=== PATIENT | female | born 1985 | race Caucasian/White ===

== ENCOUNTER 2018-12-02 11:11 | Emergency (ER) | payer MEDICAID, OTHER, SELFPAY ==
[~2018-12-02] VITALS: Ht 165.1 cm; Wt 115.3 kg
[~2018-12-02 11:11] MED LIST: /AUGM875TA OR; ACET65TA OR; ALLE25CA OR; CELE1CAP4 OR; DOCU10CA PO; GLYB125TA PO; IBUP80TA PO; MAPA500T2 PO; PROT1TAB2 OR; VICO5TAB OR; VITAPRTA PO; ZOLO25TA OR
[2018-12-02] MEDS ORDERED: OFLO3OPSO OD (11:18)
[2018-12-02] MEDS ORDERED: ESCI20TA (11:18)
[2018-12-02] MEDS ORDERED: OFLO3OPSO OP (11:18)
[2018-12-02] MEDS: FLUORESCEIN OPHTH 1 MG STRIP OD ONE (12:03)
[2018-12-02] MEDS: TETRACAINE 0.5% OPHTH SOLN 4ML OD STA (12:03)
[2018-12-02 12:56] VITALS: BP 142/71
== END 2018-12-02 13:04 | disposition home or self-care (01) ==
LOC: M ED 11:11
DX: T15.01XA Foreign body in cornea, right eye, initial encounter (principal); X58.XXXA Exposure to other specified factors, initial encounter; Y92.098 Other place in other non-institutional residence as the place of occurrence of the external cause; F41.9 Anxiety disorder, unspecified; F32.9 Major depressive disorder, single episode, unspecified; Z88.1 Allergy status to other antibiotic agents; Z79.899 Other long term (current) drug therapy

== ENCOUNTER → 2019-01-15 | Outpatient (CLI) | payer OTHER ==
[~2019-01-15] MED LIST changes: +ESCI20TA; +OFLO3OPSO OD; +OFLO3OPSO OP
[2019-01-15 18:18] LABS: GLUCOSE CHALLENGE TEST 1 HOUR 141 MG/DL (LESS THAN 140)
[2019-01-15 18:38] LABS: BASO % 0.4 % (0.0-1.0); EOS # 0.1 10^3/uL (0.0-0.5); EOS % 0.7 % (0.0-3.0); HEMATOCRIT 38.2 % (36.0-47.0); HEMOGLOBIN 12.7 g/dl (12.0-15.5); LYMPH # 2.1 10^3/uL (1.5-5.0); LYMPH % 25.7 % (24.0-44.0); MEAN CORPUSCULAR HEMOGLOBIN 30.8 pg (27.0-33.0); MEAN CORPUSCULAR HGB CONC 33.2 g/dl (32.0-36.5); MEAN CORPUSCULAR VOLUME 92.7 fl (80.0-96.0); MONO # 0.5 10^3/uL (0.0-0.8); MONO % 6.6 % (0.0-5.0); NEUTROPHILS # 5.3 10^3/uL (1.5-8.5); NEUTROPHILS % 65.9 % (36.0-66.0); PLATELET COUNT, AUTOMATED 223 10^3/uL (150-450); RED BLOOD COUNT 4.12 10^6/uL (4.00-5.40); WHITE BLOOD COUNT 8.1 10^3/uL (4.0-10.0)
[2019-01-15 18:45] LABS: RUBELLA IgG QUALITATIVE IMMUNE (IMMUNE)
[2019-01-15 19:14] LABS: HIV 1&2 SCREEN CENTAUR NEGATIVE (NEGATIVE)
[2019-01-15 20:44] LABS: CHLAMYDIA DNA AMPLIFICATION NEGATIVE (NEGATIVE); GC DNA AMPLIFICATION NEGATIVE (NEGATIVE)
[2019-01-17 09:32] LABS: HEPATITIS C VIRUS ABY INDEX 0.1 INDEX (<0.8)
== END ==
LOC: M SMT 13:17
PROVIDERS: ATTEND Advanced Practice Midwife
DX: Z34.81 Encounter for supervision of other normal pregnancy, first trimester (principal)

== ENCOUNTER → 2019-01-25 | Outpatient (CLI) | payer OTHER ==
[2019-01-25 10:23] LABS: BASO % 0.4 % (0.0-1.0); EOS % 0.6 % (0.0-3.0); HEMOGLOBIN 12.2 g/dl (12.0-15.5); LYMPH # 1.7 10^3/uL (1.5-5.0); LYMPH % 24.2 % (24.0-44.0); MEAN CORPUSCULAR VOLUME 91.1 fl (80.0-96.0); MONO # 0.5 10^3/uL (0.0-0.8); MONO % 7.2 % (0.0-5.0); NEUTROPHILS # 4.6 10^3/uL (1.5-8.5); PLATELET COUNT, AUTOMATED 210 10^3/uL (150-450); RED BLOOD COUNT 4.06 10^6/uL (4.00-5.40); WHITE BLOOD COUNT 6.8 10^3/uL (4.0-10.0)
[2019-01-25 10:51] LABS: ALT/SGPT 21 U/L (12-78); BILIRUBIN,TOTAL 0.3 MG/DL (0.2-1.0); BLOOD UREA NITROGEN 7 MG/DL (7-18); CALCIUM LEVEL 8.5 MG/DL (8.5-10.1); CARBON DIOXIDE LEVEL 26 MEQ/L (21-32); CHLORIDE LEVEL 105 MEQ/L (98-107); CREATININE FOR GFR 0.58 MG/DL (0.55-1.30); FERRITIN 23 NG/ML (8-252); FREE T4 0.88 NG/DL (0.76-1.46); GLOMERULAR FILTRATION RATE > 60.0 (>60); GLUCOSE, FASTING 99 MG/DL (70-100); IRON (FE) 74 UG/DL (50-170); POTASSIUM SERUM 3.9 MEQ/L (3.5-5.1); SODIUM LEVEL 139 MEQ/L (136-145); TOTAL PROTEIN 6.4 GM/DL (6.4-8.2)
[2019-01-25 11:40] LABS: TOTAL 25(OH) VITAMIN D 23.6 NG/ML (30.0-100.0); TOTAL T3 168.2 NG/DL (60.0-181.0)
== END ==
LOC: M SMT 08:21
PROVIDERS: ATTEND Family Medicine
DX: Z51.81 Encounter for therapeutic drug level monitoring (principal); Z79.899 Other long term (current) drug therapy; D50.9 Iron deficiency anemia, unspecified; E04.9 Nontoxic goiter, unspecified; E55.9 Vitamin D deficiency, unspecified; R51 Headache

== ENCOUNTER → 2019-01-26 | Outpatient (CLI) | payer OTHER | LOC: M LAB 07:27 | PROVIDERS: ATTEND Advanced Practice Midwife | DX: R73.02 Impaired glucose tolerance (oral) (principal) ==

== ENCOUNTER → 2019-02-03 | Outpatient (CLI) | payer OTHER | LOC: M LAB 10:23 | PROVIDERS: ATTEND Advanced Practice Midwife | DX: Z13.79 Encounter for other screening for genetic and chromosomal anomalies (principal) ==

== ENCOUNTER → 2019-02-13 | Outpatient (REF) | payer OTHER | LOC: M LAB REF 09:41 | PROVIDERS: ATTEND Advanced Practice Midwife | DX: Z34.82 Encounter for supervision of other normal pregnancy, second trimester (principal); Z3A.00 Weeks of gestation of pregnancy not specified ==

== ENCOUNTER 2019-02-26 20:01 | Emergency (ER) | payer OTHER ==
[~2019-02-26] VITALS: Ht 165.1 cm; Wt 117.7 kg
[2019-02-26] MEDS ORDERED: [UNRECOGNIZED DRUG - CODE] PO (20:09)
[2019-02-26] MEDS ORDERED: CHOL100029 PO (20:09)
[2019-02-26] MEDS ORDERED: AMOX875T2 PO (21:35)
[2019-02-26] MEDS ORDERED: methylPREDNISolone INJ 125 MG/2 ML VIAL (J2930) IV ONE (21:45)
[2019-02-26] MEDS ORDERED: ALBUTEROL SULFATE 2.5 MG/0.5 ML INH NEB SOLN NEB ONE ×2 (21:45→23:15)
[2019-02-26] MEDS ORDERED: IPRATROPIUM 0.5MG/ALBUTEROL 2.5MG INH SOL UD 3ML (DUONEB)(J7620) NEB ONE (21:45)
[2019-02-26 22:19] LABS: BASO % 0.4 % (0.0-1.0); EOS # 0.1 10^3/uL (0.0-0.5); EOS % 1.1 % (0.0-3.0); HEMATOCRIT 36.1 % (36.0-47.0); HEMOGLOBIN 11.9 g/dl (12.0-15.5); LYMPH # 1.7 10^3/uL (1.5-5.0); LYMPH % 18.3 % (24.0-44.0); MEAN CORPUSCULAR HEMOGLOBIN 29.8 pg (27.0-33.0); MEAN CORPUSCULAR VOLUME 90.3 fl (80.0-96.0); MONO # 0.7 10^3/uL (0.0-0.8); MONO % 7.2 % (0.0-5.0); NEUTROPHILS # 6.8 10^3/uL (1.5-8.5); NEUTROPHILS % 71.7 % (36.0-66.0); PLATELET COUNT, AUTOMATED 201 10^3/uL (150-450); WHITE BLOOD COUNT 9.5 10^3/uL (4.0-10.0)
[2019-02-26 22:39] LABS: BLOOD UREA NITROGEN 5 MG/DL (7-18); CALCIUM LEVEL 8.7 MG/DL (8.5-10.1); CARBON DIOXIDE LEVEL 24 MEQ/L (21-32); CHLORIDE LEVEL 105 MEQ/L (98-107); CREATININE FOR GFR 0.54 MG/DL (0.55-1.30); GLOMERULAR FILTRATION RATE > 60.0 (>60); GLUCOSE, FASTING 85 MG/DL (70-100); POTASSIUM SERUM 3.8 MEQ/L (3.5-5.1); SODIUM LEVEL 136 MEQ/L (136-145)
[2019-02-26] MEDS ORDERED: ALBUTEROL 90 MCG/ACT 8GM HFA INHALER INH ONE (23:15)
[2019-02-26] MEDS ORDERED: AMOX500C PO (23:30)
[2019-02-26] MEDS ORDERED: VENTAER INH (23:30)
[2019-02-26 23:44] VITALS: BP 139/76
--- NOTE | 2019-02-27 07:41 | ECGEPIP ---
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
== END 2019-02-26 23:45 | disposition home or self-care (01) ==
LOC: M ED 20:01
DX: O99.519 Diseases of the respiratory system complicating pregnancy, unspecified trimester (principal); J20.9 Acute bronchitis, unspecified; Z79.84 Long term (current) use of oral hypoglycemic drugs; Z90.49 Acquired absence of other specified parts of digestive tract; Z88.1 Allergy status to other antibiotic agents; O24.410 Gestational diabetes mellitus in pregnancy, diet controlled; Z3A.00 Weeks of gestation of pregnancy not specified; O99.340 Other mental disorders complicating pregnancy, unspecified trimester; F41.9 Anxiety disorder, unspecified; O99.619 Diseases of the digestive system complicating pregnancy, unspecified trimester; K21.9 Gastro-esophageal reflux disease without esophagitis
CPT/HCPCS: 36415; 80048; 83605; 85025; 87040; 93005; 94640; 96374; 99284; J2930

== ENCOUNTER → 2019-03-07 | Outpatient (CLI) | payer OTHER ==
[~2019-03-07] MED LIST changes: +AMOX500C PO; +AMOX875T2 PO; +CHOL100029 PO; +VENTAER INH; +[UNRECOGNIZED DRUG - CODE] PO
--- NOTE | 2019-03-07 07:59 | REP ---
Clinical: Anatomical evaluation. Comparison: None . Findings: Examination demonstrates a single live intrauterine in breech presentation. motion is identified by technologist. Placenta is noted anterior and grade zero without evidence for placenta previa or abruption. Amniotic fluid volume is normal. Cervix measures 4.4 cm in length and appears closed. No evidence for nuchal cord. Gestational age by LMP 17 weeks 6 days with BHAVANI 08/09/2019 . Gestational age by current measurements 18 weeks 4 days with BHAVANI 08/04/2019 . FHR equals 163 beats per minute. BPD 4.5 cm 19 weeks 4 days HC 16.0 cm 18 weeks 6 days AC 12.7 cm 18 weeks 2 days FL 2.6 cm 17 weeks 6 days HL 2.7 cm 18 weeks 4 days HC/AC ratio 1.26 Estimated weight 230 grams ( 60th percentile). Anatomical assessment demonstrates normal structures including cranium, cavum, lungs, four-chamber heart, diaphragm, stomach, cord insertion/three-vessel cord, kidneys/bladder, and extremities. Limited evaluation of the cord plexus, posterior fossa, facial features, cardiac ventricular outflow tracts and spine due to positioning. Impression: 1. Single live intrauterine in breech presentation demonstrating appropriate interval growth. 2. Anatomical limitations as noted above may warrant reevaluation and follow-up. Electronically Signed by Jean Claude Hicks MD 03/07/2019 07:50 A
== END ==
LOC: M RAD 07:12
PROVIDERS: ATTEND Advanced Practice Midwife
DX: Z34.82 Encounter for supervision of other normal pregnancy, second trimester (principal); Z3A.17 17 weeks gestation of pregnancy

== ENCOUNTER → 2019-03-19 | Outpatient (REF) | payer OTHER | LOC: M PLALAB 08:46 | PROVIDERS: ATTEND Advanced Practice Midwife | DX: Z3A.19 19 weeks gestation of pregnancy (principal); Z53.9 Procedure and treatment not carried out, unspecified reason ==

== ENCOUNTER → 2019-04-02 | Outpatient (CLI) | payer OTHER ==
--- NOTE | 2019-04-02 13:53 | REP ---
OB ULTRASOUND: Real-time sonographic evaluation of the gravid uterus performed. There is a single living intrauterine gestation. The estimated gestational age is 21 weeks 4 days with EDC 08/09/2019. Today's measurements indicate appropriate growth. Biometry and Growth: BPD 58 mm = 23 weeks 6 days, over 95th percentile HC 209 mm = 23 weeks 0 days, 91st percentile AC 179 mm = 22 weeks 5 days, 75th percentile FL 38 mm = 22 weeks 0 days, 61st percentile HC/AC ratio 1.7 within normal range. Estimated weight 515 grams 79th percentile. SEEN/GROSSLY UNREMARKABLE Lateral ventricles Yes Posterior fossa Yes Upper lip Yes LVOT Yes RVOT Yes Spine Yes Other anatomical structures were visualized on the prior study of 03/07/2019. Cervical length: Cervix is closed and measures 4.3 cm in length. heart rate: 149 beats per minute. position: Vertex. Placenta: Anterior and grade 0 with no previa or abruption. Amniotic fluid: Within normal limits. Electronically Signed by Subhash Gutiérrez MD 04/02/2019 02:51 P
== END ==
LOC: M RAD 12:07
PROVIDERS: ATTEND Advanced Practice Midwife
DX: Z34.82 Encounter for supervision of other normal pregnancy, second trimester (principal); Z3A.21 21 weeks gestation of pregnancy

== ENCOUNTER → 2019-04-09 | Outpatient (CLI) | payer OTHER | LOC: M LAB 07:43 | PROVIDERS: ATTEND Advanced Practice Midwife | DX: Z34.92 Encounter for supervision of normal pregnancy, unspecified, second trimester (principal); Z3A.19 19 weeks gestation of pregnancy ==

== ENCOUNTER → 2019-05-24 | Outpatient (CLI) | payer OTHER ==
--- NOTE | 2019-05-25 08:18 | REP ---
Focused left breast sonography: History: Left breast mastitis, possible abscess. Sonographic findings: Inferolateral quadrant left breast sonography is performed 3 o'clock to 6 o'clock. There is no evidence of focal mass, abscess, or cyst. No architectural distortion is seen. Impression: BIRADS category 1 negative findings. Clinical followup is advised.
== END ==
LOC: M WHC 14:47
PROVIDERS: ATTEND Specialist
DX: N61.0 Mastitis without abscess (principal)

== ENCOUNTER → 2019-05-31 | Outpatient (CLI) | payer OTHER ==
[2019-05-31 07:30] LABS: HEMATOCRIT 31.2 % (36.0-47.0); HEMOGLOBIN 10.2 g/dl (12.0-15.5); MEAN CORPUSCULAR HEMOGLOBIN 30.4 pg (27.0-33.0); MEAN CORPUSCULAR HGB CONC 32.7 g/dl (32.0-36.5); MEAN CORPUSCULAR VOLUME 92.9 fl (80.0-96.0); PLATELET COUNT, AUTOMATED 197 10^3/uL (150-450); RED BLOOD COUNT 3.36 10^6/uL (4.00-5.40); WHITE BLOOD COUNT 6.3 10^3/uL (4.0-10.0)
== END ==
LOC: M LAB 06:57
PROVIDERS: ATTEND Advanced Practice Midwife
DX: Z34.93 Encounter for supervision of normal pregnancy, unspecified, third trimester (principal); Z3A.00 Weeks of gestation of pregnancy not specified

== ENCOUNTER → 2019-07-03 | Outpatient (REF) | payer OTHER | LOC: M SFHCWAGY 13:05 | PROVIDERS: ATTEND Advanced Practice Midwife | DX: Z36.85 Encounter for antenatal screening for Streptococcus B (principal) ==

== ENCOUNTER 2019-07-29 19:06 | Outpatient (CLI) | payer OTHER ==
[~2019-07-29] VITALS: Ht 165.1 cm; Wt 131.4 kg
[2019-07-29 19:38] VITALS: BP 139/93
[2019-07-29 19:53] VITALS: BP 142/94
[2019-07-29 20:08] VITALS: BP 138/88
[2019-07-29] MEDS ORDERED: FIORICET TAB PO ONE (20:15)
[2019-07-29 20:47] LABS: ALT/SGPT 12 U/L (12-78); BILIRUBIN,TOTAL 0.6 MG/DL (0.2-1.0); CREATININE FOR GFR 0.62 MG/DL (0.55-1.30); GLOMERULAR FILTRATION RATE > 60.0 (>60); LDH LACTATE DEHYDROGENASE 211 U/L (84-246); URIC ACID 5.1 MG/DL (2.6-6.0)
[2019-07-29 20:48] LABS: APPEARANCE, URINE CLOUDY (CLEAR); BACTERIA, URINE AUTO 1+ (NEGATIVE); BILIRUBIN, URINE AUTO NEGATIVE (NEGATIVE); BLOOD, URINE BLOOD NEGATIVE (NEGATIVE); COLOR, URINE YELLOW (YELLOW); GLUCOSE, URINE (UA) AUTO NEGATIVE (NEGATIVE); KETONE, URINE AUTO NEGATIVE (NEGATIVE); LEUKOCYTE ESTERASE, URINE AUTO 1+ (NEGATIVE); MUCUS, URINE SMALL (NEGATIVE); NITRITE, URINE AUTO NEGATIVE (NEGATIVE); PROTEIN, URINE AUTO NEGATIVE (NEGATIVE); RBC, URINE AUTO 4 /HPF (0-3); SPECIFIC GRAVITY URINE AUTO 1.014 (1.002-1.035); SQUAMOUS EPITHELIAL CELL UR AU 39 /HPF (0-6); TRANSITIONAL EPITHELIAL AUTO 2 /HPF; UROBILINOGEN, URINE AUTO 0.2 mg/dL (0.0-2.0); WBC, URINE AUTO 5 /HPF (0-3)
[2019-07-29 20:56] LABS: TOTAL PROTEIN,RANDOM URINE 23.5 MG/DL (0.0-12.0)
[2019-07-29 21:24] LABS: HEMOGLOBIN 9.8 g/dl (12.0-15.5); MEAN CORPUSCULAR HEMOGLOBIN 28.2 pg (27.0-33.0); MEAN CORPUSCULAR HGB CONC 31.6 g/dl (32.0-36.5); MEAN CORPUSCULAR VOLUME 89.1 fl (80.0-96.0); PLATELET COUNT, AUTOMATED 209 10^3/uL (150-450); RED BLOOD COUNT 3.48 10^6/uL (4.00-5.40); WHITE BLOOD COUNT 7.1 10^3/uL (4.0-10.0)
[2019-07-29 21:47] LABS: CREATININE,RANDOM URINE 66.1 MG/DL
== END 2019-07-29 23:25 | disposition home or self-care (01) ==
LOC: M LDO 19:06
PROVIDERS: ATTEND Obstetrics & Gynecology
DX: O36.8130 Decreased fetal movements, third trimester, not applicable or unspecified (principal); O26.893 Other specified pregnancy related conditions, third trimester; R51 Headache; O12.03 Gestational edema, third trimester; Z3A.38 38 weeks gestation of pregnancy

== ENCOUNTER 2019-07-30 09:18 | Inpatient (IN) | payer OTHER ==
[2019-07-30] VITALS (9 sets, daily range): BP systolic 111–138; BP diastolic 60–84
[~2019-07-30] VITALS: Ht 165.1 cm; Wt 130.4 kg
[2019-07-30] MEDS ORDERED: LACTATED RINGER'S 1000 ML IV STA (10:50)
[2019-07-30] MEDS ORDERED: LR 1,000 ML IV SCH (10:50)
--- NOTE | 2019-07-30 11:06 | HPEPDOC ---
Obstetrical History & Physical General Date of Admission Jul 30, 2019 at 09:18 Primary Care Physician: EMANUEL HILTON CNM History of Present Illness Patient is a 33-year-old female who is a at 38.3 weeks gestation with an BHAVANI of 08/09/19 based off of her LMP and consistent with her first trimester ultrasound. She presents for an induction of labor due to preeclampsia. She was seen yesterday with a severe headache and elevated BPs. Her spot urine done yesterday was 0.36. She declined IOL yesterday and desired to come back today. she reports active movement. She denies contractions, leaking of fluid or vaginal bleeding. She currently denies any preeclamptic symptoms. Chief Complaint: Pre-eclamsia, Induction of labor Information Provided By: Patient Age: 33 : 3 Term: 2 Pre-term: 0 Abortions: 0 Livin Care Care: Good Care Dating Final EDC: Aug 09, 2019 Final EDC by: LMP EGA at Admission: 38.3 Antepartum Course Diagnos(e)s preeclampsia, depression, obesity Height (inches): 65 Past Medical History Past Obstetrical History #1: Past Obstetrical History: Primgravida Gestation: 40 Type of Delivery: Spontaneous Vaginal Del. (May 2011) Sex of Infant: Female (6 lbs 12 oz.) Complications: Yes (retained placenta) Past Obstetrical History #2: Past Obstetrical History: Multigravida Gestation: 40 Type of Delivery: Spontaneous Vaginal Del. (02/2014) Sex of : Female (weight 6 lbs 10 oz) Complications: Yes (GDM) CERTIFIED PERSONAL CHEF History: No pertinent history Past Medical History Surgical History: Gallbladder, Other (cyst removed from buttocks) Family History Significant Family History: Other (anxiety and depression) Social History Marital Status: Family situation: Spouse/partner home Psychosocial History: Anxiety, Depression (taking lexapro 20 mg daily) * Smoker: non-smoker Alcohol: Denies Drugs: denies Abuse Violence Screening Have you been hit/kicked/slapp: No Have you been sexually assault: No Imunizations Tdap status: current Allergies Coded Allergies: cephalexin (Verified Allergy, Unknown, 12/02/18) Medications Scheduled 87/Iron Bis/Folic/Dha (Nestabs Dha Combo Pack) 1 Each Combo..pkg, 1 TAB PO DAILY Vitamin D (Vitamin D3) 1,000 Unit Tablet, 2,000 UNITS PO DAILY Miscellaneous Medications Escitalopram Oxalate (Escitalopram Oxalate) 20 Mg Tablet Physical Examination Physical Examination GENERAL: Alert and oriented times three. BREAST: . ABDOMEN: Gravid and non-tender to touch. FETUS: Is vertex (VTX) by sterile vaginal examination (SVE), fetus is vertex (VTX) by Juliano. HEART RATE: Regular rate and rhythm. LUNGS: Clear to auscultation (CTA). EXTREMITIES: No edema. No clonus. Deep tendon reflexes (DTRs) + 1. Vital Signs/I&O Vital Signs Label Value Date Time Patient Temperature 98.0 degrees F 07/30/19 0950 Temperature Source Temporal 07/30/19 0950 Pulse 91 07/30/19 0950 Respiratory Rate 18 bpm 07/30/19 0950 Blood Pressure Assessment 129/78 (95) 07/30/19 0950 Source Automatic Cuff (NIBP) Pulse 81 07/30/19 1225 Respiratory Rate 18 bpm 07/30/19 1225 Blood Pressure Assessment 134/78 (96) 07/30/19 1225 Source Automatic Cuff (NIBP) Laboratory Data [facility] Laboratory Tests 2 07/30/19 09:27: Serology Scanned Report Hepatitis B Testing CBC/BMP Urine Culture: No Growth Pertinent Laboratoy Data Blood Type: O+ RBC Antibody Screen: Negative HIV: Negative Hepatitis B: Negative Hepatitis C: Negative Rapid Plasma Reagin: Nonreactive Rubella: Immune Chlamydia/Gonorrhea: Negative Group B Streptococcus: Negative Glucose Tolerance Test: 144 Vaginal Examination Dilation: 1cm Effacement: other (thick) Station: -2 Cervical Consistency: Soft Cervical Position: Middle Presentation: Cephalic presentation Position: Vertex (occiput) Assessment Heart Rate (FHR): 120 Variability: Moderate Accelerations: Positive Decelerations: None Tocometer Contractions: No Multi-drug resistant Organism: No history of MDRO Assessment/Plan Assessment IUP at 38.3 weeks gestation GBS negative Category I FHR tracing preeclampsia Plan Admit to L&D per Dr. Pal's recommendation/plan. OOB ad jenny. Diet: regular then switch to clears once IV Pitocin is started. Group B Streptococcus (GBS) negative. Labs and intravenous (IV) per unit protocol. Counseled on Cytotec, snyder bulb and Pitocin for induction of labor. Anesthesia consult per patient's request. Lactated Ringers (LR): Bolus 500 mL prior to epidural, then at 125 mL/hr. Anticipate cervical change and . C-S as appropriate. EMANUEL HILTON CNM Jul 30, 2019 11:06
[2019-07-30 11:09] LABS: HEMATOCRIT 31.4 % (36.0-47.0); HEMOGLOBIN 10.1 g/dl (12.0-15.5); MEAN CORPUSCULAR HEMOGLOBIN 28.8 pg (27.0-33.0); MEAN CORPUSCULAR HGB CONC 32.2 g/dl (32.0-36.5); MEAN CORPUSCULAR VOLUME 89.5 fl (80.0-96.0); PLATELET COUNT, AUTOMATED 198 10^3/uL (150-450); RED BLOOD COUNT 3.51 10^6/uL (4.00-5.40); WHITE BLOOD COUNT 7.4 10^3/uL (4.0-10.0)
[2019-07-30] MEDS: miSOPROStol 50 MCG 1/2 TAB (S0191) PO SCH ×3 (11:24→19:42)
[2019-07-31] VITALS (24 sets, daily range): BP systolic 127–150; BP diastolic 58–96
--- NOTE | 2019-07-31 00:50 | IPNPDOC ---
Obstetrical Progress Note Date of Service Jul 31, 2019 Subjective Patient rpeorts she feels her contractions and they have gotten a little bit more uncomfortable. Objective Vital Signs Date Time Temp Pulse Resp B/P (MAP) Pulse Ox O2 Delivery O2 Flow Rate FiO2 07/30/19 21:49 97.7 90 138/73 (94) 07/30/19 15:22 18 Assessment Heart Rate (FHR): 140 Variability: Moderate Accelerations: Positive Decelerations: None Heart Rate Tracing: Category I Tocometer Contractions: Yes Frequency: regular, other (2-4 minutes) Sterile Vaginal Examination Dilation: 4 cm Effacement (%): 80% Station: -1 Cervical Consistency: Soft Cervical Position: Anterior Postion/Presentation: Cephalic presentation Assessment and Plan Age: 33 : 3 Term: 2 Pre-term: 0 Abortions: 0 Livin EGA at Admission: 38.3 Weeks & Days 39.4 Status: Reassuring Group B Streptococcus: Negative Anticipate: Vaginal Delivery Additional Comments IV Pitocin to be started per order. Patient considering epidural. Will consider AROM. EMANUEL HILTON CNM Jul 31, 2019 00:50
[2019-07-31] MEDS ORDERED: OXYTOCIN DRIP 30 UNITS in IV 1 EA IV SCH ×2 (01:00→06:06)
[2019-07-31] MEDS ORDERED: FENTANYL 2MCG/ML ROPIVACAINE 0.2% IN 0.9% NACL 100ML IVBAG As Ordered ONE (02:53)
[2019-07-31] MEDS ORDERED: EPIDURAL COMMENT XX SCH (04:15)
[2019-07-31] MEDS ORDERED: FENTANYL/ROPIVACAINE/NACL BAG 100 ML EPIDURAL SCH (04:15)
[2019-07-31] MEDS ORDERED: REFRIGERATOR IV KEYS XX PRN (04:15)
[2019-07-31] MEDS ORDERED: ePHEDrine SULFATE 25 MG/5 ML(5MG/ML) SYRINGE IV PRN (04:15)
[2019-07-31] MEDS ORDERED: LACTATED RINGER'S 1000 ML IV PRN (04:15)
[2019-07-31] MEDS ORDERED: diphenhydrAMINE 50MG/ML VIAL (J1200) IV PRN (04:15)
[2019-07-31] MEDS ORDERED: ONDANSETRON 4MG/2ML VIAL IV PRN (04:15)
[2019-07-31] MEDS ORDERED: EPIDURAL/PCA KEYS XX PRN (04:15)
[2019-07-31] MEDS ORDERED: NALOXONE INJ 0.4MG/1ML VIAL (J2310 PER 1MG) IV PRN (04:15)
--- NOTE | 2019-07-31 04:41 | IPNPDOC ---
Obstetrical Progress Note Date of Service Jul 31, 2019 Subjective Patient is comfortable with her epidural. Objective Vital Signs Date Time Temp Pulse Resp B/P (MAP) Pulse Ox O2 Delivery O2 Flow Rate FiO2 07/31/19 04:20 97.6 81 128/58 (81) 07/30/19 15:22 18 Assessment Heart Rate (FHR): 130 Variability: Moderate Accelerations: Positive Decelerations: None Heart Rate Tracing: Category I Tocometer Contractions: Yes Frequency: regular Sterile Vaginal Examination Dilation: 6 cm Effacement (%): 100% Station: -1 Postion/Presentation: Cephalic presentation Assessment and Plan EGA at Admission: 38.5 Status: Reassuring Group B Streptococcus: Negative Anticipate: Vaginal Delivery Additional Comments Patient spontaneously ruptured to a large amount of clear fluid. IV Pitocin is at 8 mu/min. EMANUEL HILTON CNM Jul 31, 2019 04:41
--- NOTE | 2019-07-31 06:14 | DNPDOC ---
[facility] Delivery Note Delivery Note DATE OF DELIVERY: 07/31/19 at 0548 PREDELIVERY DIAGNOSIS: 38-5/7 weeks' gestation and labor. POST DELIVERY DIAGNOSIS: Delivered. PROCEDURE: Spontaneous vaginal delivery. TRUCK TRAILER MECHANIC: Emanuel Huerta CNM, DOM ANESTHESIA: epidural. ESTIMATED BLOOD LOSS: 500 mL. FINDINGS: 8 pounds 11 ounces; 3950 grams; female infant, Score 8/9. DELIVERY SUMMARY: Patient is a 33-year-old female who is now a who presented for IOL due to preeclampsia. She received 3 doses of cytotec and IV Pitocin for induction. The patient requested an epidural for pain management. She progressed to fully dilated at 0525 and pushed to a living female in the OA position with appropriate restitution. The anterior shoulder delivered with ease and the corpus immediately followed. The baby was placed skin to skin active and crying with stimulation. The cord was clamped after pulsation ceased and cut. A 3-vessel cord was noted. The placenta delivered spontaneously and intact at 0552. Uterine hemostasis was achieved via rapid infusion of IV Pitocin and fundal massage. The perineum, cervix, and vagina was inspected and found to have a perineal abrasion that did not need a repair. Both mom and baby are in stable condition. All counts of instruments were correct. EMANUEL HUERTA CNM Jul 31, 2019 06:14
[2019-07-31] MEDS ORDERED: DIBUCAINE 1% OINTMENT 30GM TOP PRN (06:15)
[2019-07-31] MEDS ORDERED: ANUSOL HC CREAM 30GM TOP PRN (06:15)
[2019-07-31] MEDS ORDERED: ACETAMINOPHEN TAB 650MG DOSE (2X325MG) PO PRN (06:15)
[2019-07-31] MEDS ORDERED: RHOGAM 300 MCG (1500 IU) INJ (J2790) IM SCH (06:15)
[2019-07-31] MEDS ORDERED: IBUPROFEN 600 MG TAB PO PRN (06:15)
[2019-07-31] MEDS ORDERED: MEASLES,MUMPS,RUBELLA VACCINE INJ (MMR-II) (90707) SC SCH (06:15)
[2019-07-31] MEDS ORDERED: DOCUSATE SODIUM 100 MG CAP PO PRN (06:15)
[2019-07-31] MEDS ORDERED: METHYLERGONOVINE MALEATE 0.2 MG TAB PO PRN (06:15)
[2019-07-31] MEDS: IBUPROFEN 800 MG TAB PO PRN ×2 (08:00→15:55)
[2019-07-31] MEDS: PRENATAL VITAMINS CHEWABLE TABLET PO SCH (09:30)
[2019-07-31] MEDS: ACETAMINOPHEN 500 MG TAB PO PRN ×2 (10:55→18:19)
[2019-08-01] MEDS: IBUPROFEN 800 MG TAB PO PRN
[2019-08-01 06:00] VITALS: BP 136/86
[2019-08-01] MEDS: ACETAMINOPHEN 500 MG TAB PO PRN ×2 (06:26→16:06)
[2019-08-01] MEDS: PRENATAL VITAMINS CHEWABLE TABLET PO SCH (08:00)
== END 2019-08-01 19:00 | disposition home or self-care (01) | DRG 560 ==
LOC: M LDI 09:18 → M OBS 07-31 10:16
PROVIDERS: ADMIT Advanced Practice Midwife; ATTEND Advanced Practice Midwife
PROC: 3E033VJ Introduction of Other Hormone into Peripheral Vein, Percutaneous Approach (ICD-10-PCS; 2019-07-30)
PROC: 3E0DXGC Introduction of Other Therapeutic Substance into Mouth and Pharynx, External Approach (ICD-10-PCS; 2019-07-30)
PROC: 10E0XZZ Delivery of Products of Conception, External Approach (ICD-10-PCS; principal; 2019-07-31)
DX: O14.94 Unspecified pre-eclampsia, complicating childbirth (principal); Z37.0 Single live birth; Z3A.38 38 weeks gestation of pregnancy

== ENCOUNTER → 2019-08-30 | Outpatient (REF) | payer OTHER | LOC: M SFHCWAGY 16:54 | PROVIDERS: ATTEND Nurse Practitioner Women's Health | DX: R30.0 Dysuria (principal) ==

== ENCOUNTER → 2019-12-31 | Outpatient (CLI) | payer OTHER ==
--- NOTE | 2020-01-09 10:28 | REP ---
LEFT ANKLE SERIES CLINICAL: Left ankle pain without trauma. TECHNIQUE: AP, lateral, and bilateral oblique views of the left ankle. FINDINGS: Osseous structures, joint spaces, and surrounding soft tissues are normal. No acute fracture or dislocation appreciated. Ankle mortise intact. No subcutaneous emphysema or foreign body. Lateral view demonstrates small calcaneal heel spur. IMPRESSION: Normal left ankle radiographs. MTDD
== END ==
LOC: M ADAMS 16:12
PROVIDERS: ATTEND Physician Assistant
DX: M25.572 Pain in left ankle and joints of left foot (principal)

== ENCOUNTER 2020-05-18 18:20 | Emergency (ER) | payer OTHER ==
[~2020-05-18] VITALS: Ht 165.1 cm; Wt 117.3 kg
[~2020-05-18 18:20] MED LIST changes: -ESCI20TA; +ESCI20TA16
[2020-05-18] MEDS ORDERED: VENL-115 (18:42)
[2020-05-18] MEDS ORDERED: EQLTAB18 PO (18:42)
[2020-05-18] MEDS ORDERED: NS 1,000 ML IV ONE (18:45)
[2020-05-18] MEDS: MORPHINE 4 MG/ML 1ML VIAL/SYRINGE (J2270) IV PRN ×2 (18:56→20:09)
[2020-05-18 18:58] LABS: BASO % 0.1 % (0.0-1.0); HEMATOCRIT 40.1 % (36.0-47.0); HEMOGLOBIN 13.3 g/dl (12.0-15.5); LYMPH # 1.9 10^3/uL (1.5-5.0); LYMPH % 23.2 % (24.0-44.0); MEAN CORPUSCULAR HEMOGLOBIN 29.9 pg (27.0-33.0); MEAN CORPUSCULAR HGB CONC 33.2 g/dl (32.0-36.5); MEAN CORPUSCULAR VOLUME 90.1 fl (80.0-96.0); MONO # 0.5 10^3/uL (0.0-0.8); MONO % 6.6 % (0.0-5.0); NEUTROPHILS # 5.7 10^3/uL (1.5-8.5); NEUTROPHILS % 69.7 % (36.0-66.0); PLATELET COUNT, AUTOMATED 208 10^3/uL (150-450); RED BLOOD COUNT 4.45 10^6/uL (4.00-5.40); WHITE BLOOD COUNT 8.2 10^3/uL (4.0-10.0)
[2020-05-18 19:21] LABS: ALBUMIN 2.8 GM/DL (3.2-5.2); BILIRUBIN,DIRECT 0.1 MG/DL (0.0-0.2); BILIRUBIN,TOTAL 0.2 MG/DL (0.2-1.0); TOTAL PROTEIN 5.9 GM/DL (6.4-8.2)
--- NOTE | 2020-05-18 20:08 | REPVR ---
PROCEDURE INFORMATION: Exam: CT Abdomen And Pelvis Without Contrast Exam date and time: 05/18/2020 7:23 PM Age: 34 years old Clinical indication: Abdominal pain; Flank; Right; Additional info: Right flank pain - pending poc hcg TECHNIQUE: Imaging protocol: Computed tomography of the abdomen and pelvis without contrast. Axial, coronal and sagittal reformatted images were created and reviewed. Radiation optimization: All CT scans at this facility use at least one of these dose optimization techniques: automated exposure control; mA and/or kV adjustment per patient size (includes targeted exams where dose is matched to clinical indication); or iterative reconstruction. COMPARISON: CT ABD PELVIS WITH CONTRAST 12/13/2015 7:31 AM FINDINGS: Lungs: Minimal dependent atelectatic change at the lung bases. Liver: Mild hepatomegaly. Diffuse hepatic steatosis. Gallbladder and bile ducts: Status post cholecystectomy. No biliary ductal dilatation. Pancreas: Unremarkable. Spleen: Unremarkable. Adrenal glands: Normal. No mass. Kidneys and ureters: Mild right-sided hydroureteronephrosis and perinephric/periureteral edema, secondary to a 5 mm distal right ureteral calculus (axial image 118 and coronal image 73). Nonobstructing left renal calculus. Stomach and bowel: No bowel wall thickening. No obstruction. No pneumatosis. Appendix: Normal. Intraperitoneal space: No free fluid. No organized fluid collection. No free air. Vasculature: Unremarkable. No aneurysm. Lymph nodes: No pathologically enlarged lymph nodes. Urinary bladder: Unremarkable as visualized. Reproductive: Unremarkable. Bones/joints: No acute osseous abnormality. Soft tissues: Small, fat containing umbilical hernia. IMPRESSION: 1. Mild right-sided hydroureteronephrosis and perinephric/periureteral edema, secondary to a 5 mm distal right ureteral calculus. 2. Additional findings, as above. Electronically signed by: Marvin Lucio On 05/18/2020 20:09:10 PM
[2020-05-18] MEDS ORDERED: KETOROLAC 30 MG/ML 1ML VIAL IV ONE (20:30)
[2020-05-18] MEDS ORDERED: ONDANSETRON 4MG/2ML VIAL IV PRN (20:30)
[2020-05-18] MEDS ORDERED: HYDROMORPHONE HCL 0.5 MG/ 0.5 ML SYRINGE (J1170 PER 1) IV PRN (20:30)
[2020-05-18] MEDS ORDERED: FLOM0.4C39 PO (21:23)
[2020-05-18] MEDS ORDERED: PERC5TAB12 PO (21:23)
[2020-05-18 21:30] VITALS: BP 175/86
[2020-05-18] MEDS ORDERED: OXYCODONE/APAP 5MG/325MG(BULK FOR ED) 1 TABLET PO ONE (21:30)
== END 2020-05-18 21:56 | disposition home or self-care (01) ==
LOC: M ED 18:20
DX: N20.1 Calculus of ureter (principal); Z88.1 Allergy status to other antibiotic agents; Z87.891 Personal history of nicotine dependence
CPT/HCPCS: 74176; 80047; 80076; 81001; 83690; 84702; 85025; 93041; 96361; 96374; 96375; 96376; 99284; J1170; J1885; J2270; J2405

== ENCOUNTER → 2020-06-17 | Outpatient (REF) | payer OTHER ==
[~2020-06-17] MED LIST changes: +EQLTAB18 PO; +FLOM0.4C39 PO; +PERC5TAB12 PO; +VENL-115
[2020-06-17 18:02] LABS: APPEARANCE, URINE HAZY (CLEAR); BACTERIA, URINE AUTO 1+ (NEGATIVE); BILIRUBIN, URINE AUTO NEGATIVE (NEGATIVE); BLOOD, URINE BLOOD NEGATIVE (NEGATIVE); COLOR, URINE YELLOW (YELLOW); GLUCOSE, URINE (UA) AUTO NEGATIVE (NEGATIVE); KETONE, URINE AUTO NEGATIVE (NEGATIVE); LEUKOCYTE ESTERASE, URINE AUTO NEGATIVE (NEGATIVE); NITRITE, URINE AUTO NEGATIVE (NEGATIVE); PROTEIN, URINE AUTO NEGATIVE (NEGATIVE); RBC, URINE AUTO 1 /HPF (0-3); SPECIFIC GRAVITY URINE AUTO 1.014 (1.002-1.035); SQUAMOUS EPITHELIAL CELL UR AU 2 /HPF (0-6); UROBILINOGEN, URINE AUTO 0.2 mg/dL (0.0-2.0); WBC, URINE AUTO 2 /HPF (0-3)
== END ==
LOC: M SMT 17:12
PROVIDERS: ATTEND Nurse Practitioner Family
DX: N20.0 Calculus of kidney (principal)

== ENCOUNTER → 2020-08-28 | Outpatient (REF) | payer OTHER | LOC: M LAB REF 15:49 | PROVIDERS: ATTEND Physician Assistant | DX: N39.0 Urinary tract infection, site not specified (principal) ==

== ENCOUNTER → 2021-08-24 | Outpatient (CLI) | payer OTHER ==
[2021-08-24 18:42] LABS: ALBUMIN 3.9 GM/DL (3.2-5.2); ALT/SGPT 44 U/L (12-78); BILIRUBIN,TOTAL 0.5 MG/DL (0.2-1.0); BLOOD UREA NITROGEN 11 MG/DL (7-18); CARBON DIOXIDE LEVEL 28 MEQ/L (21-32); CHLORIDE LEVEL 105 MEQ/L (98-107); CREATININE FOR GFR 0.95 MG/DL (0.55-1.30); FERRITIN 26 NG/ML (8-252); FREE T4 0.85 NG/DL (0.76-1.46); GLOMERULAR FILTRATION RATE > 60.0 (>60); GLUCOSE, FASTING 100 MG/DL (70-100); IRON (FE) 97 UG/DL (50-170); POTASSIUM SERUM 4.2 MEQ/L (3.5-5.1); SODIUM LEVEL 139 MEQ/L (136-145); TOTAL PROTEIN 7.1 GM/DL (6.4-8.2)
[2021-08-24 18:45] LABS: ESTRADIOL 154.4 PG/ML; LUTEINIZING HORMONE 37.1 mIU/mL; PROLACTIN 10.1 NG/ML; TOTAL T3 125.3 NG/DL (60.0-181.0)
[2021-08-24 18:46] LABS: FOLLICLE STIMULATING HORMONE 17.5 mIU/mL
[2021-08-24 18:54] LABS: BASO # 0.1 10^3/uL (0.0-0.2); BASO % 0.7 % (0.0-1.0); EOS # 0.1 10^3/uL (0.0-0.5); EOS % 0.7 % (0.0-3.0); HEMATOCRIT 40.7 % (36.0-47.0); HEMOGLOBIN 13.4 g/dl (12.0-15.5); LYMPH # 2.8 10^3/uL (1.5-5.0); LYMPH % 36.9 % (24.0-44.0); MEAN CORPUSCULAR HEMOGLOBIN 30.5 pg (27.0-33.0); MEAN CORPUSCULAR HGB CONC 32.9 g/dl (32.0-36.5); MEAN CORPUSCULAR VOLUME 92.5 fl (80.0-96.0); MONO # 0.5 10^3/uL (0.0-0.8); MONO % 6.9 % (2.0-8.0); NEUTROPHILS # 4.1 10^3/uL (1.5-8.5); NEUTROPHILS % 54.5 % (36.0-66.0); PLATELET COUNT, AUTOMATED 239 10^3/uL (150-450); WHITE BLOOD COUNT 7.5 10^3/uL (4.0-10.0)
== END ==
LOC: M ADAMS 13:56
PROVIDERS: ATTEND Family Medicine
DX: D50.9 Iron deficiency anemia, unspecified (principal); E04.9 Nontoxic goiter, unspecified; E55.9 Vitamin D deficiency, unspecified; E28.310 Symptomatic premature menopause; Z79.899 Other long term (current) drug therapy

== ENCOUNTER → 2022-02-03 | Outpatient (REF) | payer OTHER | LOC: M PLALAB 12:35 | PROVIDERS: ATTEND Advanced Practice Midwife | DX: Z12.4 Encounter for screening for malignant neoplasm of cervix (principal) ==